=== PATIENT | female | born 1970 | race Hispanic/Latino ===

== ENCOUNTER 2025-05-04 09:36 | Day surgery (SDC) | payer MEDICARE ==
[~2025-05-04] VITALS: Ht 160 cm; Wt 99.8 kg
[2025-05-04] VITALS (11 sets, daily range): BP systolic 104–138; BP diastolic 75–83; PULSE 61–93; RESP 14–18; TEMP 97.2–97.8
[2025-05-04] MEDS: 0.9%NACL 1000ML 1,000 ML IV ONE (14:14)
== END 2025-05-04 16:29 | disposition home or self-care (01) ==
LOC: ENDO 09:36 → DAH 09:36 → ENDO 16:29
PROVIDERS: ATTEND Surgery
DX: R14.0 Abdominal distension (gaseous) (principal); D12.0 Benign neoplasm of cecum; K62.1 Rectal polyp; K57.30 Diverticulosis of large intestine without perforation or abscess without bleeding; E66.9 Obesity, unspecified; F41.9 Anxiety disorder, unspecified; F32.A Depression, unspecified; G40.909 Epilepsy, unspecified, not intractable, without status epilepticus; R93.3 Abnormal findings on diagnostic imaging of other parts of digestive tract; R19.4 Change in bowel habit; E66.01 Morbid (severe) obesity due to excess calories; K44.9 Diaphragmatic hernia without obstruction or gangrene; F03.90 Unspecified dementia, unspecified severity, without behavioral disturbance, psychotic disturbance, mood disturbance, and anxiety; Z90.49 Acquired absence of other specified parts of digestive tract; Z90.710 Acquired absence of both cervix and uterus; Z88.0 Allergy status to penicillin; Z88.8 Allergy status to other drugs, medicaments and biological substances; Z68.38 Body mass index [BMI] 38.0-38.9, adult; Z79.899 Other long term (current) drug therapy
CPT/HCPCS: 45380; J7030; J2704 ×3; A4620; A4215 ×2; A4223; A4222; A4221; A4663; A4606; J3490